=== PATIENT | male | born 1950 | race Native Hawaiian/Other Pacific Islander ===

== ENCOUNTER 2017-09-30 15:58 | Observation (INO) | payer BC ==
[~2017-09-30] VITALS: Ht 182.9 cm; Wt 162.6 kg
[2017-09-30 16:32] VITALS: BP 156/99; TEMP 97.8; Ht 182.9 cm; Wt 162.6 kg
--- NOTE | 2017-09-30 18:00 | NUR ---
PT ADMITTED WITH PNEUMONIA BY DIRECT ADMIT. PT REPORTS COUGHING X1 WEEK. PT DYSPNEIC WITH BILATERAL WHEEZING UPON ADMISSION. SATURATIONS OF 95% ON ROOM AIR. PT ORIENTED TO ROOM AND CALL LIGHT. SR UP X2. FAMILY AT BEDSIDE.
[2017-09-30 18:06] LABS: PLATELET COUNT 203 K/uL (142-355)
[2017-09-30] MEDS ORDERED: HYDROCHLOROT12.5 M1 PO (18:10)
[2017-09-30] MEDS ORDERED: AMIODARONE HCL100 MG PO (18:11)
[2017-09-30] MEDS ORDERED: ELIQUIS5 MG PO (18:12)
[2017-09-30] MEDS ORDERED: TEKTURNA300 MG PO ×2 (18:13→18:36)
[2017-09-30] MEDS ORDERED: SPIRONOLACT50 MG PO (18:13)
[2017-09-30 18:21] LABS: POTASSIUM 4.6 mmol/L (3.6-5.2)
[2017-09-30] MEDS ORDERED: ALPR0.5T24 PO (18:38)
[2017-09-30] MEDS ORDERED: NEXIUM20 M1 PO (18:39)
[2017-09-30] MEDS ORDERED: ZANTAC 75 PO (18:40)
[2017-09-30] MEDS ORDERED: DILTIAZEM HCL360 M2 PO (18:41)
--- NOTE | 2017-09-30 19:51 | NUR ---
PT STATED DOCTOR WERNER COME AND SAID PATIENT DOES NOT HAVE PNEUMONIA, AND THAT HE DOES NOT HAVE TO TAKE TREATMENTS IF HE DOES NOT WANT TO , AND HE DID NOTHAVE TO BE WOKEN UP DURING MIDDLE OF NIGHT TO TAKE ANY. PATIENT PULLED 3,000 ON IS. WILL LET NEXT THERAPIST KNOW OF GUNJAN CHANGES.
[2017-09-30 20:00] VITALS: BP 170/107; TEMP 98.1
--- NOTE | 2017-09-30 23:43 | NUR ---
I WAS INFORMED THAT PT. WAS SUPPOSED TO RECIEVE DUONEB TXS. EVERY 4 HOURS BUT I DONT SEE THE MED LISTED IN HIS EMAR. PT DID NOT TAKE HIS 2000 TX. OR HIS 0000 TX. SO FAR BECAUSE HE SOUNDS CLEAR IN LUNG RODRIGUEZ AND IS NOT SHORT OF BREATH. THE PT. STATED THAT DR. CALDERA COME IN AND CHECKED WITH HIM SOMETIME TODAY AND INFORMED THE PT. THAT HE DID NOT THINK TXS WERE NEEDED BUT IF HE FELT LIKE HE NEEDED ONE HE COULD GET ONE. SO PT. HAS NOT BEEN RECIEVING ANY TXS. SO FAR. PT ALSO SAID HE DIDNT NEED HIS 0400 TX. UNLESS SOMETHING CHANGED WITH HIS BREATHING.
[2017-10-01] VITALS: BP 137/71; TEMP 98
--- NOTE | 2017-10-01 03:53 | NUR ---
I CHECKED ON PT. AND PT. WAS ASLEEP AND HAD ALREADY TOLD ME PREVIOUSLY THAT HE DID NOT NEED A BREATHING TX. SO TX. WAS NOT GIVEN.
[2017-10-01 04:00] VITALS: BP 130/68; TEMP 97.7
[2017-10-01 08:00] VITALS: BP 170/98; TEMP 98.5
--- NOTE | 2017-10-01 11:40 | NUR ---
Pt. EXIT OUT OF FRONT ENTRANCE VIA W/C.
== END 2017-10-01 11:40 | disposition home or self-care (01) ==
LOC: MED/SURG 15:58
PROVIDERS: Student in an Organized Health Care Education/Training Program; ADMIT Nurse Practitioner
DX: J16.8 Pneumonia due to other specified infectious organisms (principal); I10 Essential (primary) hypertension; G47.33 Obstructive sleep apnea (adult) (pediatric); I48.0 Paroxysmal atrial fibrillation; E86.0 Dehydration; R06.02 Shortness of breath; J40 Bronchitis, not specified as acute or chronic; F41.8 Other specified anxiety disorders
CPT/HCPCS: 36600; 80053; 82805; 83880; 85027; 85379; 87040; 93005; 94760; 96365; 96366; 96367; 96374; 96375; 99220; G0378; G0379; J2930

== ENCOUNTER 2018-01-07 07:22 | Outpatient (CLI) | payer OTHER ==
[~2018-01-07 07:22] MED LIST: ALPR0.5T24 PO; AMIODARONE HCL100 MG PO; DILTIAZEM HCL360 M2 PO; ELIQUIS5 MG PO; HYDROCHLOROT12.5 M1 PO; NEXIUM20 M1 PO; SPIRONOLACT50 MG PO; TEKTURNA300 MG PO; ZANTAC 75 PO
[2018-01-07 09:15] LABS: POTASSIUM 4.5 mmol/L (3.6-5.2)
== END 2018-01-07 19:55 | disposition home or self-care (01) ==
LOC: LABW 07:22
PROVIDERS: Podiatrist Foot & Ankle Surgery
DX: I50.9 Heart failure, unspecified (principal); Z79.899 Other long term (current) drug therapy; Z51.81 Encounter for therapeutic drug level monitoring; B35.1 Tinea unguium
CPT/HCPCS: 36415; 80048; 80076; 83880

== ENCOUNTER 2018-01-28 11:20 | Outpatient (CLI) | payer OTHER ==
[2018-01-28 11:52] LABS: POTASSIUM 4.5 mmol/L (3.6-5.2)
== END 2018-01-28 19:28 | disposition home or self-care (01) ==
LOC: LABW 11:20
PROVIDERS: Internal Medicine Cardiovascular Disease
DX: Z79.899 Other long term (current) drug therapy (principal); Z51.81 Encounter for therapeutic drug level monitoring
CPT/HCPCS: 36415; 80048

== ENCOUNTER 2018-02-11 07:35 | Outpatient (CLI) | payer OTHER | END 2018-02-11 23:28 | disposition home or self-care (01) | LOC: LABW 07:35 | DX: B35.1 Tinea unguium (principal) | CPT/HCPCS: 36415; 80076 ==

== ENCOUNTER 2018-04-07 10:36 | Outpatient (CLI) | payer OTHER | END 2018-04-07 22:00 | disposition home or self-care (01) | LOC: LABW 10:36 | DX: B35.1 Tinea unguium (principal) | CPT/HCPCS: 36415; 80076 ==

== ENCOUNTER 2018-05-18 10:33 | Outpatient (CLI) | payer OTHER | END 2018-05-18 19:56 | disposition home or self-care (01) | LOC: RAD 10:33 | DX: R50.9 Fever, unspecified (principal) ==

== ENCOUNTER 2018-05-20 16:35 | Outpatient (CLI) | payer OTHER | END 2018-05-20 20:47 | disposition home or self-care (01) | LOC: INF 16:35 | DX: J18.8 Other pneumonia, unspecified organism (principal) | CPT/HCPCS: 96365; 96367; J0696; J1335 ==

== ENCOUNTER 2018-05-21 08:10 | Outpatient (CLI) | payer OTHER | END 2018-05-21 20:32 | disposition home or self-care (01) | LOC: INF 08:10 | DX: J18.8 Other pneumonia, unspecified organism (principal) | CPT/HCPCS: 96365; 96367; J0696; J1335; J2405 ==

== ENCOUNTER 2018-05-26 06:54 | Observation (INO) | payer OTHER ==
[~2018-05-26] VITALS: Ht 185.4 cm; Wt 131.6 kg
[2018-05-26] VITALS (9 sets, daily range): BP systolic 108–158; BP diastolic 63–109; TEMP 97.5–98; BMI 39.2
[2018-05-26] MEDS ORDERED: ALBU90AE13 INH (07:20)
[2018-05-26] MEDS ORDERED: OMEPRAZOLE40 MG PO (07:21)
[2018-05-26] MEDS ORDERED: TEKTURNA300 MG PO (07:22)
[2018-05-26 07:33] LABS: PLATELET COUNT 454 K/uL (142-355)
[2018-05-26 07:38] LABS: POTASSIUM 5.2 mmol/L (3.6-5.2); SODIUM 133 mmol/L (136-145)
[2018-05-27] VITALS (14 sets, daily range): BP systolic 113–149; BP diastolic 52–113; TEMP 97.6–99.8; Ht 185.4 cm; Wt 131.6 kg
[2018-05-27 04:53] LABS: PLATELET COUNT 329 K/uL (142-355)
[2018-05-27 05:28] LABS: POTASSIUM 5.2 mmol/L (3.6-5.2)
[2018-05-28] VITALS: BP 107/69; TEMP 98.6
[2018-05-28 04:00] VITALS: BP 145/100; TEMP 98
[2018-05-28 08:04] VITALS: BP 126/88; TEMP 98.2
[2018-05-28 12:06] VITALS: BP 101/78; TEMP 98.7
[2018-05-28 13:03] LABS: POTASSIUM 4.3 mmol/L (3.6-5.2)
== END 2018-05-28 16:00 | disposition home or self-care (01) ==
LOC: ED 06:54 → MED/SURG 18:30
PROVIDERS: Student in an Organized Health Care Education/Training Program; ADMIT Internal Medicine
PROC: 0DJ08ZZ Inspection of Upper Intestinal Tract, Via Natural or Artificial Opening Endoscopic (ICD-10-PCS; principal; 2018-05-27)
DX: K29.70 Gastritis, unspecified, without bleeding (principal); I48.2 Chronic atrial fibrillation; Z79.01 Long term (current) use of anticoagulants; I10 Essential (primary) hypertension; G47.33 Obstructive sleep apnea (adult) (pediatric); Z86.73 Personal history of transient ischemic attack (TIA), and cerebral infarction without residual deficits; E86.0 Dehydration; R11.2 Nausea with vomiting, unspecified; K44.9 Diaphragmatic hernia without obstruction or gangrene; I50.9 Heart failure, unspecified
CPT/HCPCS: 36415; 74022; 80048; 80053; 81000; 82150; 82550; 82553; 83605; 83690; 83735; 84484; 85027; 93005; 96365; 96366; 96374; 96375; 96376; 99220; 99284; G0378; J2001; J2250; J2405; J2550; J2704; J3490

== ENCOUNTER 2018-06-02 07:35 | Day surgery (SDC) | payer OTHER ==
[~2018-06-02] VITALS: Ht 30.5 cm; Wt 0.5 kg
[~2018-06-02 07:35] MED LIST changes: +ALBU90AE13 INH; +OMEPRAZOLE40 MG PO
[2018-06-02 09:15] LABS: PLATELET COUNT 197 K/uL (142-355)
[2018-06-02 09:27] LABS: POTASSIUM 4.6 mmol/L (3.6-5.2)
[2018-06-02 09:54] LABS: PARTIAL THROMBOPLASTIN TIME 24.5 SECONDS (24.5-33.6)
== END 2018-06-02 15:15 | disposition home or self-care (01) ==
LOC: OR 07:35 → EDSTATUS 10:00 → OR 10:00 → NM 12:00 → OR 15:15
PROVIDERS: Student in an Organized Health Care Education/Training Program
PROC: 0FT44ZZ Resection of Gallbladder, Percutaneous Endoscopic Approach (ICD-10-PCS; principal; 2018-06-02)
PROC: 0FB04ZX Excision of Liver, Percutaneous Endoscopic Approach, Diagnostic (ICD-10-PCS; 2018-06-02)
DX: K82.8 Other specified diseases of gallbladder (principal); R16.0 Hepatomegaly, not elsewhere classified; K76.0 Fatty (change of) liver, not elsewhere classified
CPT/HCPCS: 80053; 85027; 85610; 85730; J0132; J0330; J0690; J1100; J1170; J2001; J2250; J2405; J2704; J3010; J3490

== ENCOUNTER 2020-09-20 16:06 | Outpatient (CLI) | payer OTHER ==
[2020-09-20 17:34] LABS: POTASSIUM 4.4 mmol/L (3.6-5.2)
== END 2020-09-20 22:01 | disposition home or self-care (01) ==
LOC: LABW 16:06
PROVIDERS: ATTEND Internal Medicine Cardiovascular Disease
DX: Z79.899 Other long term (current) drug therapy (principal); I50.9 Heart failure, unspecified
CPT/HCPCS: 36415; 80048; 83880

== ENCOUNTER 2020-12-27 11:34 | Outpatient (CLI) | payer OTHER ==
[2020-12-27 13:31] LABS: POTASSIUM 4.3 mmol/L (3.6-5.2)
== END 2020-12-27 21:03 | disposition home or self-care (01) ==
LOC: LABW 11:34
PROVIDERS: ATTEND Internal Medicine Cardiovascular Disease
DX: I50.9 Heart failure, unspecified (principal); Z79.899 Other long term (current) drug therapy
CPT/HCPCS: 36415; 80048; 83880

== ENCOUNTER 2023-03-05 10:13 | Outpatient (CLI) | payer OTHER ==
[2023-03-05 11:43] LABS: POTASSIUM 4.3 mmol/L (3.6-5.2)
== END 2023-03-05 19:57 | disposition home or self-care (01) ==
LOC: LABW 10:13
PROVIDERS: ATTEND Internal Medicine Cardiovascular Disease
DX: Z79.899 Other long term (current) drug therapy (principal); I50.9 Heart failure, unspecified
CPT/HCPCS: 36415; 80048; 83880; 84443